=== PATIENT | female | born 1985 | race Hispanic/Latino ===

== ENCOUNTER 2018-12-11 19:39 | Day surgery (SDC) | payer SELFPAY ==
[2018-12-11 20:20] VITALS: BP 107/68; TEMP 97.8; BMI 30.2
--- NOTE | 2018-12-11 21:19 | PDOC.FPRHP ---
- History of Present Illness Chief Complaint: contractions - Allergies/Adverse Reactions Allergies Allergy/AdvReac Type Severity Reaction Status Date / Time No Known Allergies Allergy Unverified 12/11/18 20:12 - Home Medications Medication Instructions Recorded Confirmed Type [id number]/Iron/Folic/Docusate 1 tablet PO DAILY 12/11/18 12/11/18 History [Citranatal Rx] - History PMHx: PSHx: FHx: Social: - Vital signs BP: [] HR: [] RR: [] Tmax: [] Pox: []% on [] Wt: [] FMR H&P: Upper Level - Plan Date/Time: 12/11/182108 I, [], have evaluated this patient and agree with findings/plan as outlined by internal auditor resident. Pertinent changes/additions are listed here.
[2018-12-11] MEDS ORDERED: Ondansetron ODT 8 MG TAB SL PRN (21:27)
[2018-12-11] MEDS ORDERED: Morphine 4 MG/ML VIAL IM SCH (21:30)
--- NOTE | 2018-12-11 21:59 | PDOC.FPROB ---
FMR OB H&P: HPI - History of Present Illness Chief Complaint: contractions Indentification: at 38.5 weeks History of Present Illness: Patient comes in for contractions which started at about 0400 this AM and have become more and more frequent and intense. Patient denies LOF, bleeding, or discharge. She has felt baby moving often. Denies burning or blood in urination. Denies sob, fevers, chills, sweats, or cough. Primary Care Physician: Piter FMR OB H&P: Current - Care : 5 Para: 4 Gestational age: 38.5 Due date: 12/20/17 Dating Criteria: 17.3 wk US Course/Complications: + quant gold neg CXR - OB Labs Blood type: O RH: positive Antibody Screen: negative HIV: negative RPR: negative HepBsAg: negative Rubella: immune Quad screen: negative Gonorrhea: negative Chlamydia: negative Pap Smear: neg 1 hour gtt: 144 3 hour GTT: 0/4 abnormal FMR OB H&P: History - Past Medical History PMH: latent TB denies asthma, htn, dm - OB History OB History: 4 prior NSVDs in [facility] all term denies operative deliveries - DIRECTOR MEDICAL SCIENCE History DIRECTOR MEDICAL SCIENCE History: denies abnormal pap denies STIs - Surgical History Sx History: denies surgeries - Social History Social History: no smoking, alcohol, or drugs - Family History Family History: denies breast/ovarian cancers FMR OB H&P: Medications - Current Home Medications: Medication Instructions Recorded Confirmed Type Azyigitz57/Iron/Folic/Docusate 1 tablet PO DAILY 12/11/18 12/12/18 History [Citranatal Rx] Allergies/Adverse Reactions: Allergies Allergy/AdvReac Type Severity Reaction Status Date / Time No Known Allergies Allergy Unverified 12/11/18 20:12 FMR OB H&P: ROS - Review of Systems General: denies: fever/chills, night sweats, fatigue ENT: denies: nasal congestion, rhinorrhea Cardiovascular: denies: chest pain, palpitation, edema Respiratory: denies: cough, congestion, shortness of breath Gastrointestinal: denies: abdominal pain, indigestion, nausea, vomiting, diarrhea Genitourinary (Female): denies: dysuria, hematuria Musculoskeletal: denies: pain, stiffness Neurologic: denies: numbness, syncope, seizures Integumentary: denies: itching, rash FMR OB H&P: Vital Signs - Maternal Vital signs: Vital Signs - First Documented Temp Pulse Resp BP Pulse Ox 97.8 F 90 20 107/68 100 12/11/18 20:05 12/11/18 20:05 12/11/18 20:05 12/11/18 20:05 12/11/18 20:05 - Heart Tones Baseline: 140 Variability: moderate Acceleration: present Deceleration: absent Category: category [address] [place] contractions every: irregular, q5-10 on presentation FMR OB H&P: Physical Exam - Physical Exam General: NAD, awake, alert and oriented HEENT: normocephalic and atraumatic, PERRLA, EOMI Neck: supple Heart: RRR, normal S1/S2, no murmurs/rubs/gallops, pulses present, no edema General: CTAB, no respiratory distress, good air movement, no rales/rhonchi, no wheezing Abdomen: soft, gravid, fundus(cm), non-tender, bowel sound present Musculoskeletal: normal gait and station, pulses present, FROM in all four extremities, no misalignment/asymmetry Neurological: cranial nerves II through XII intact, sensation to pain,touch and proprioception grossly normal Skin: no rash, good tugor, capillary refill <2 seconds - Pelvic Exam SVE: /-3 @ 2019 FMR OB H&P: A/P - Problem List (1) Status: Acute Discussion: Date/Time: 12/11/182157 33 yo at 38.5 wks by 17.3 wk # Labor check - /-3 at 2019 - contractions spacing out, re-check in 3 hrs 2/2 G5 - no history suggesting ROM - rubella immune, GBS neg # Latent Tb - f/u with health dept. PP This H&P was discussed with Dr. Marin who agrees with the above documentation and plan. Addendum - Attending - Attending Attestation Date/Time: 12/13/18905 I personally evaluated the patient and discussed the management with Dr. MANDUJANO I agree with the History, Examination, Assessment and Plan documented above with any addition or exceptions noted below.
--- NOTE | 2018-12-12 00:12 | PDOC.EVN ---
Event Note - Event Note Event Note: SVE /-3, cxns q10 min- irregular moderate variability, accels present, no decels will discharge patient home as examined unchanged strict return precautions discussed patient and are in understanding
== END 2018-12-12 00:20 | disposition home or self-care (01) ==
LOC: L&D/OP 19:39
PROVIDERS: ATTEND Obstetrics & Gynecology
DX: O47.1 False labor at or after 37 completed weeks of gestation (principal); O99.513 Diseases of the respiratory system complicating pregnancy, third trimester; R76.11 Nonspecific reaction to tuberculin skin test without active tuberculosis; Z3A.38 38 weeks gestation of pregnancy
CPT/HCPCS: 96372; 99283; J2270

== ENCOUNTER 2018-12-12 08:59 | Inpatient (IN) | payer MEDICAID, SELFPAY ==
[2018-12-12] MEDS: Lactated Ringer's 1,000 ML IV SCH ×2 (09:19→16:04)
[2018-12-12] MEDS ORDERED: Lidocaine 1% (PF) 30 ML VIAL ONE (09:22)
[2018-12-12] MEDS ORDERED: NS / Oxytocin 40 units/1000ml 1,000 ML ONE ×2 (09:22→10:49)
[2018-12-12 09:34] VITALS: BMI 31.4
[2018-12-12] MEDS ORDERED: Misoprostol 200 MCG TAB ONE (09:57)
[2018-12-12] MEDS ORDERED: Misoprostol 200 MCG TAB PR PRN (10:05)
[2018-12-12] MEDS ORDERED: Promethazine HCl 25 MG/ML VIAL IM PRN (10:05)
[2018-12-12] MEDS ORDERED: Ondansetron PF 4 MG/2 ML Vial IVP PRN ×2 (10:05)
[2018-12-12] MEDS ORDERED: Lanolin Ointment 7 GM TUBE TOP PRN (10:05)
[2018-12-12] MEDS ORDERED: Bisacodyl 10 MG SUPP PR PRN (10:05)
[2018-12-12] MEDS ORDERED: Adacel (T-DAP) 0.5 ML SYRINGE IM ONE (10:05)
[2018-12-12] MEDS ORDERED: Meperidine HCl/PF 25 MG/ML VIAL IM/IV PRN (10:05)
[2018-12-12] MEDS ORDERED: Benzocaine/Menthol 20-0.5% 60 ML CAN TOP PRN (10:05)
[2018-12-12] MEDS ORDERED: Acetaminophen 500 MG TAB PO PRN (10:05)
[2018-12-12] MEDS ORDERED: Butorphanol Tartrate 1 MG/ML VIAL SLOW IVP PRN (10:05)
[2018-12-12] MEDS ORDERED: Milk Of Magnesia 30 ML UDCUP PO PRN (10:05)
[2018-12-12] MEDS ORDERED: HYDROcodone/Acetaminophen 5/325 mg Tablet PO PRN (10:05)
[2018-12-12] MEDS ORDERED: NS / Oxytocin 40 units/1000ml 1,000 ML IV SCH (10:15)
[2018-12-12 10:16] LABS: Hemoglobin 12.9 g/dL (12.0-16.0); Mean Corpuscular Hemoglobin 30.4 pg (27.0-31.0); Mean Corpuscular Volume 89.5 fL (78.0-98.0); Mean Platelet Volume 7.3 fL (7.4-10.4); Platelet Count 284 thou/uL (130-400); RBC Distribution Width 12.7 % (11.5-14.5); Red Blood Cell (RBC) Count 4.22 mill/uL (4.20-5.40); White Blood Cell (WBC) Count 9.5 thou/uL (4.8-10.8)
[2018-12-12] MEDS: Ibuprofen 800 MG TAB PO SCH ×2 (10:33→18:19)
[2018-12-12 11:00] LABS: HBSAg Index 0.17 S/CO (0-0.99); Hep B Surf Ag Non-Reactive S/CO (NonReactive); Syphilis Antibody Nonreactive (Nonreactive); Syphilis Antibody Index 0.05 S/CO (<1.00 Non-Reactive)
--- NOTE | 2018-12-12 13:14 | PDOC.OPDEL ---
OB Operative/Delivery Note Delivery Dr/Surgeon: Timothy/Glynn Pre-Delivery Diagnosis: active labor Procedure/Post Delivery Dx: spontaneous vaginal delivery Weeks gestation: 39 Anesthesia: none - Additional Findings/Plan Placenta delivered: spontaneous Repaired Obstetrical Laceration: none Estimated blood loss: 350 Post delivery plan: routine recovery ( @ 0940 w/ APGARS 8/9. 3v cord, placenta delivered intact, discarded. Nuchal X1. Placenta via maria. EBL 350.) Addendum - Attending - Attending Attestation Date/Time: 12/12/18 1800 I was present for the entire delivery. Denia
--- NOTE | 2018-12-12 13:24 | PDOC.LDHP ---
Labor and Delivery H&P Chief complaint: contractions HPI: 33 yo @ 39. 2 presents for painful contractions. Pt presented with 9cm dilation and bulging bag, delivered precipitously after AROM showed clear fluid. Current gestational age (weeks): 39 Dating criteria: last menstrual period, first trimester ultrasound Grav: 5 Para: 4 Current complications: other (latent TB in ) Abnormal US findings: No Current medications: pre- vitamins Previous surgical history: none Allergies/Adverse Reactions: Allergies Allergy/AdvReac Type Severity Reaction Status Date / Time No Known Allergies Allergy Unverified 12/11/18 20:12 Social history: none - Physical Exam Vital signs reviewed and normal: yes General: breathing through contractions Heart: RRR Lungs: CTAB Abdomen: gravid Extremeties: no edema FHT: category 1 - Vaginal Exam cm dilated: 9 Effacement: 100% Station: 1+ - OB Labs Blood type: O RH: positive Antibody Screen: negative HIV: negative RPR: negative HEPSAg: negative 1 hour GCT: negative (equivocal) 3 hour GTT: Negative GBS: negative Urine drug screen: not done Rubella: immune - Assessment L&D Assessment: term patient in labor - Plan Plan: admit to L&D -: 1) TIUP in active labor - pt delivered precipitously after AROM. - APGARS 8/9 TOD 0940 - clear fluid after AROM - Nuchal X1 - EBL 350 - some clots and slightly oozy pp MN cytotec given and no bleeding after cytotec - no lacerations 2) Latent tb - health department for rx Addendum - Attending - Attending Attestation Date/Time: 12/12/18 1800 I personally evaluated the patient and discussed the management with Dr. Aguirre. I agree with the History, Examination, Assessment and Plan documented above.
[2018-12-12] MEDS: Ferrous Sulfate 325 MG TAB PO SCH (16:04)
[2018-12-13] MEDS: Ibuprofen 800 MG TAB PO SCH ×2 (02:23→10:22)
[2018-12-13] MEDS: Docusate Calcium (SURFAK) 240 MG CAP PO SCH ×2 (02:24→09:40)
--- NOTE | 2018-12-13 06:01 | PDOC.PP ---
Post Progress Note Post Day #: 1 Subjective: Patient doing well. No significant overnight events. Lochia minimal. Ambulating without difficulty. Tolerating PO. PO intake tolerated: yes Flatus: yes Ambulation: yes Vital Signs (12 hours) Temp Pulse Resp BP Pulse Ox 12/13/18 01:00 98.2 F 69 18 90/52 L 12/12/18 20:00 98.0 F 64 18 98/57 L 99 Weight Weight 63.503 kg - Physical Examination General: NAD Cardiovascular: no m/r/g, RRR Respiratory: clear to auscultation bilaterally, non-labored breathing Abdominal: + bowel sounds, lochia (minimal), no distention, appropriately TTP Extremities: negative homans (B) Neurological: no gross focal deficits Psychiatric: A&Ox3, normal affect Result Diagrams: 12/13/18 05:43 Additional Labs: Post Labs Blood Type O POSITIVE 12/12/18 09:20 Hep Bs Antigen Non-Reactive S/CO (NonReactive) 12/12/18 09:20 (1) Term delivered Code(s): O80 - ENCOUNTER FOR FULL-TERM UNCOMPLICATED DELIVERY Status: Acute - Assessment/Plan 33 year old --> P5 at 39.1 wks delivered TAGA F infant at 9:40 AM via on 12/12. Apgars 8/9. 1. TIUP, delivered - No complications - No lacerations - Routine PP care - GBS negative - Contraception: IUD 2. Latent TB - F/u with Health Department upon d/c 3. Grand multparity - Monitor for pp hemorrhage 4. Glucose intolerance - Elevated 1 hour, normal 3 hour GTT Dispo: Stable. Routine delivery. Plan for d/c home today. Addendum - Attending - Attending Attestation Date/Time: 12/14/18 0806 I personally evaluated the patient and discussed the management with Dr. Dumas. I agree with the History, Examination, Assessment and Plan documented above.
[2018-12-13 06:31] LABS: Mean Corpuscular HGB CONC 32.6 g/dL (32.0-36.0); Mean Corpuscular Hemoglobin 30.1 pg (27.0-31.0); Mean Corpuscular Volume 92.3 fL (78.0-98.0); Mean Platelet Volume 7.1 fL (7.4-10.4); Platelet Count 259 thou/uL (130-400); RBC Distribution Width 12.8 % (11.5-14.5); Red Blood Cell (RBC) Count 3.65 mill/uL (4.20-5.40); White Blood Cell (WBC) Count 9.1 thou/uL (4.8-10.8)
[2018-12-13] MEDS: Lactated Ringer's 1,000 ML IV SCH ×2 (08:55→08:56)
[2018-12-13] MEDS: Ferrous Sulfate 325 MG TAB PO SCH (08:55)
[2018-12-13] MEDS ORDERED: Prenatal Vitamin 1 TAB PO SCH (09:00)
[2018-12-13 12:12] VITALS: BP 91/55; TEMP 98
== END 2018-12-13 16:00 | disposition home or self-care (01) | DRG 806 ==
LOC: L&D/OP 08:59 → L&D 09:30 → 3SW 13:06
PROVIDERS: ADMIT Family Medicine; ATTEND Obstetrics & Gynecology
PROC: 10E0XZZ Delivery of Products of Conception, External Approach (ICD-10-PCS; principal; 2018-12-12)
PROC: 10907ZC Drainage of Amniotic Fluid, Therapeutic from Products of Conception, Via Natural or Artificial Opening (ICD-10-PCS; 2018-12-12)
PROC: 3E0P7VZ Introduction of Hormone into Female Reproductive, Via Natural or Artificial Opening (ICD-10-PCS; 2018-12-12)
DX: O69.1XX0 Labor and delivery complicated by cord around neck, with compression, not applicable or unspecified (principal); O98.02 Tuberculosis complicating childbirth; Z37.0 Single live birth; O99.284 Endocrine, nutritional and metabolic diseases complicating childbirth; E74.39 Other disorders of intestinal carbohydrate absorption; Z3A.39 39 weeks gestation of pregnancy
CPT/HCPCS: 36415; 85027; 86780; 86850; 86900; 86901; 87340; 99285; J2001